=== PATIENT | male | born 1990 | race Caucasian/White ===

== ENCOUNTER 2016-08-22 19:29 | Emergency (ER) | payer SELFPAY | END 2016-08-22 20:30 | disposition left against medical advice (07) | LOC: D.ER 19:29 | DX: S80.812A Abrasion, left lower leg, initial encounter (principal); X58.XXXA Exposure to other specified factors, initial encounter; Y93.89 Activity, other specified; Y92.89 Other specified places as the place of occurrence of the external cause ==

== ENCOUNTER 2016-09-05 20:07 | Emergency (ER) | payer SELFPAY | END 2016-09-05 21:15 | disposition home or self-care (01) | LOC: D.ER 20:07 | DX: L03.116 Cellulitis of left lower limb (principal); J45.909 Unspecified asthma, uncomplicated; H91.3 Deaf nonspeaking, not elsewhere classified ==

== ENCOUNTER 2016-10-31 11:33 | Emergency (ER) | payer SELFPAY | END 2016-10-31 13:06 | disposition home or self-care (01) | LOC: D.ER 11:33 | DX: R51 Headache (principal); J45.909 Unspecified asthma, uncomplicated; H91.3 Deaf nonspeaking, not elsewhere classified; F17.200 Nicotine dependence, unspecified, uncomplicated ==